=== PATIENT | male | born 1965 | race Caucasian/White ===

== ENCOUNTER → 2019-07-27 09:50 | Outpatient (BNVA) | payer SELFPAY | PROVIDERS: Family Provider Nurse Practitioner Family; Visit Provider Nurse Practitioner Family | DX: E11.9 Type 2 diabetes mellitus without complications (principal); F41.9 Anxiety disorder, unspecified | CPT/HCPCS: 80053; 82043; 82044; 83036 ==

== ENCOUNTER → 2020-02-23 09:58 | Outpatient (BNVA) | payer SELFPAY | PROVIDERS: Family Provider Nurse Practitioner Family; Visit Provider Nurse Practitioner Family | DX: R35.0 Frequency of micturition (principal); E11.9 Type 2 diabetes mellitus without complications; Z79.899 Other long term (current) drug therapy; Z12.5 Encounter for screening for malignant neoplasm of prostate; R32 Unspecified urinary incontinence | CPT/HCPCS: 36416; 80053; 81000; 82962; 83036; G0103 ==

== ENCOUNTER → 2020-03-04 16:37 | Outpatient (BNVA) | payer SELFPAY | PROVIDERS: Family Provider Nurse Practitioner Family; Visit Provider Nurse Practitioner Family | DX: E13.65 Other specified diabetes mellitus with hyperglycemia (principal) | CPT/HCPCS: 36416; 82962 ==

== ENCOUNTER → 2020-12-23 08:47 | Outpatient (BNVA) | payer SELFPAY | PROVIDERS: Family Provider Nurse Practitioner Family; Visit Provider Nurse Practitioner Family | DX: E78.5 Hyperlipidemia, unspecified (principal); E11.9 Type 2 diabetes mellitus without complications; I10 Essential (primary) hypertension | CPT/HCPCS: 80053; 80061; 82043; 83036 ==

== ENCOUNTER → 2021-04-25 11:12 | Outpatient (BNVA) | payer SELFPAY | PROVIDERS: Family Provider Nurse Practitioner Family; Visit Provider Nurse Practitioner Family | DX: E11.9 Type 2 diabetes mellitus without complications (principal); E78.5 Hyperlipidemia, unspecified | CPT/HCPCS: 80061; 83036 ==

== ENCOUNTER → 2021-10-09 10:05 | Outpatient (BNVA) | payer SELFPAY | PROVIDERS: Visit Provider Nurse Practitioner Family | DX: E11.9 Type 2 diabetes mellitus without complications (principal); I10 Essential (primary) hypertension | CPT/HCPCS: 82043; 83036 ==

== ENCOUNTER → 2022-08-11 11:39 | Outpatient (BNVA) | payer SELFPAY | PROVIDERS: PCP Nurse Practitioner Family; Visit Provider Nurse Practitioner Family | DX: E11.9 Type 2 diabetes mellitus without complications (principal); I10 Essential (primary) hypertension; L03.90 Cellulitis, unspecified | CPT/HCPCS: 80061 ==

== ENCOUNTER → 2022-10-12 16:35 | Outpatient (BNVA) | payer SELFPAY | PROVIDERS: PCP Nurse Practitioner Family; Visit Provider Nurse Practitioner Family | DX: I10 Essential (primary) hypertension (principal); E11.9 Type 2 diabetes mellitus without complications | CPT/HCPCS: 80061; 83036 ==

== ENCOUNTER → 2022-10-16 15:38 | Outpatient (BNVA) | payer SELFPAY | PROVIDERS: PCP Nurse Practitioner Family; Visit Provider Nurse Practitioner Family | DX: E11.9 Type 2 diabetes mellitus without complications (principal) | CPT/HCPCS: 82962 ==

== ENCOUNTER → 2023-03-17 16:07 | Outpatient (BNVA) | payer SELFPAY | PROVIDERS: PCP Nurse Practitioner Family; Visit Provider Nurse Practitioner Family | DX: E11.9 Type 2 diabetes mellitus without complications (principal) | CPT/HCPCS: 80053; 80061; 83036; 85025 ==

== ENCOUNTER 2023-08-11 07:58 | Emergency (ER) | payer SELFPAY ==
[2023-08-11 08:44] LABS: Basophils # 0.1 10^3/uL (0.0-0.1); Basophils % 0.7 %; Eosinophils # 0.2 10^3/uL (0.0-0.8); Eosinophils % 3.1 %; Hematocrit 43.4 % (37-53); Lymphocytes # 1.3 10^3/uL (0.8-4.8); Lymphocytes % 18.8 %; Mean Corpuscular HGB Conc 33.6 g/dL (30-55); Mean Corpuscular Hemoglobin 30.7 pg (27-33); Mean Corpuscular Volume 91.4 fl (82-101); Mean Platelet Volume 9.7 fL (7.4-10.4); Monocytes # 0.5 10^3/uL (0.2-0.9); Monocytes % 6.8 %; Neutrophils # 4.97 10^3/uL (1.8-7.7); Neutrophils % 70.2 %; Nucleated Red Blood Cells % 0 %; Platelet Count 281 10^3/cmm (157-399); Red Blood Count 4.75 10^6/uL (3.85-5.65); Red Cell Distribution Width 12.2 % (12.1-15.1); White Blood Count 7.08 10^3/uL (3.29-11.43)
[2023-08-11 08:45] VITALS: BP 152/87; PULSE 110; RESP 18; TEMP 36.8; O2SAT 97
[2023-08-11 09:03] LABS: Alanine Aminotransferase 16 U/L (0-41); Albumin Level 4.3 g/dL (3.5-5.2); Alkaline Phosphatase 96 U/L (40-130); Anion Gap 16.2 (5-19); Aspartate Amino Transferase 12 U/L (0-40); Blood Urea Nitrogen 15 mg/dL (6-20); Calcium 8.5 mg/dL (8.5-10.5); Carbon Dioxide 26 mmol/L (22-29); Chloride 100 mmol/L (98-107); Globulin 2.9 g/dL (1.3-4.6); Glomerular Filtration Rate 86.4 mL/min (90-130); Osmolality Calculated 314 mOsm/kg (285-295); Potassium 4.2 mmol/L (3.5-5.1); Sodium 138 mmol/L (136-145); Total Bilirubin 0.4 mg/dL (0.15-1.2); Total Protein 7.2 g/dL (6.6-8.7)
--- NOTE | 2023-08-11 09:05 | XR_ITS ---
WS: [id number] Exam: XR foot RT min 3V* [id number] Date/Time of Exam: 08/11/2023 9:08 AM Reason For Exam: diabetic No acute fracture or dislocation. Minimal DJD at the first MP joint. The remaining joints are preserv ed. No soft tissue foreign bodies noted. Small posterior heel spur. XR/XR foot RT min 3V* [id number] IMPRESSION: 1. Minimal DJD at the first MP joint otherwise unremarkable RIGHT foot.
--- NOTE | 2023-08-11 09:05 | XR_ITS ---
WS: [id number] Exam: XR foot LT min 3V* [id number] Date/Time of Exam: 08/11/2023 9:07 AM Reason For Exam: diabetic No acute fracture or dislocation. The joints are relatively well-maintained. Small heel spurs. No sof t tissue foreign bodies. XR/XR foot LT min 3V* [id number] IMPRESSION: 1. No fracture or other significant finding.
[2023-08-11 09:29] LABS: Glucose 581 mg/dL (65-115)
--- NOTE | 2023-08-11 09:34 | ED_ITS ---
HPI - Extremity Problem 2 General: Chief complaint: Extremity Problem,Nontraumatic Stated complaint: blister on feet, pt states he is diabetic Time Seen by Provider: 08/11/23 08:06 Source: patient Mode of arrival: ambulatory History of Present Illness: 58-year-old male presents to the emergen cy room with blisters bilaterally on his feet. He was in [place] recently and had been playing a game on concrete and developed blisters. This was about a week ago there is no sign of infection. He states all of his belongings were impounded with his car so he does not have any of his medications. Patient is an insulin-dependent diabetic and he also takes metformin. He denies any chest pain no fever sweats or chills. Associated symptoms: Deny chest pain, fever(s) or rash Review of Systems 2 Const: Denies: fever(s) or chills Card: Denies: chest pain Resp: Denies: dyspnea GI: Denies: abdominal pain : Denies: dysuria, urinary frequency or urinary urgency Musc: Denies: neck pain or back pain Skin/Breast: Denies: rash PFSH ED 2 PFSH: Medical History Diabetes Social History Smoking and tobacco/nicotine status: never used tobacco/nicotine Alcohol intake: never Substance/Drug Use: never Adopted: No Caregiver/support person: No Lives independently: No Household members: spouse Current occupational status: employed Sexually active: Yes Do you think of yourself as: Straight/Heterosexual Current gender identity: Male Physical Exam 2 Const: COMMON NORMALS: no acute distress GENERAL APPEARANCE: cooperative and comfortable ORIENTATION/CONSCIOUSNESS: Yes awake, Yes oriented to person, Yes oriented to place and Yes oriented to time HENMT: COMMON NORMALS: normocephalic, atraumatic and hearing grossly normal bilaterally HEAD & SCALP: normocephalic and atraumatic Resp: COMMON NORMALS: normal respiratory effort, No retractions, No use of accessory muscles and clear to auscultation bilaterally AUSCULTATION: clear to auscultation bilaterally Cardio: COMMON NORMALS: regular rate, regular rhythm and No murmurs present (Cardio) RATE: regular rate RHYTHM: regular rhythm GI: COMMON NORMALS: Soft to palpation and No hepatosplenomegaly present A USCULTATION: Yes normoactive bowel sounds PALPATION: Yes Soft to palpation, No Tenderness to palpation present (GI), No Guarding due to palpation present (GI) and Yes No hepatosplenomegaly present Extremity: COMMON NORMALS: normal to inspection, capillary refill normal, no clubbing, cyanosis or edema, no calf tenderness and no pedal edema Neuro: SENSORIUM/ORIENTATION: Yes oriented to person, Yes oriented to place and Yes oriented to time Skin: COMMON NORMALS: no rashes or lesions noted GENERAL SKIN EXAM: no rashes or lesions noted Course 2 Vital Signs: Vital signs: Vital Signs Temperature 98.2 F 08/11/23 08:45 Pulse Rate 91 08/11/23 11:31 Respiratory Rate 18 08/11/23 08:45 Blood Pressure 128/84 08/11/23 11:31 Pulse Oximetry 95 08/11/23 11:31 Oxygen Delivery Me thod Room Air 08/11/23 08:45 MDM - Extremity (Nontraumatic) Medical Decision Making Healing blisters on the soles of the feet bilaterally infection or ulceration at this point. Will discharge home apply topical antibiotic ointment and keep covered change dressing daily will refer to podiatry to monitor his healing. Also set him up for primary care. We did refill his meds and states they were impounded with his car. His blood sugar is elevated but he does not have any ketones. Discharge the patient case management to make arrangements for PCP and podiatry. X-ray did not show any significant abnormality on his feet. Medical Records I reviewed the patient's medical records. Lab Data I reviewed the patient's lab results. 08/11/23 08:33 08/11/23 08:33 Radiology Impressions Foot X-Ray 08/11/23 09:05 IMPRESSION: 1. Minimal DJD at the first MP joint otherwise unremarkable RIGHT foot. Laboratory Results WBC 7.08 10^3/uL (3.29-11.43) 08/11/23 08:33 RBC 4.75 10^6/uL (3.85-5.65) 08/11/23 08:33 Hgb 14.60 g/dL (11.27-16.99) 08/11/23 08:33 Hct 43.4 % (37-53) 08/11/23 08:33 MCV 91.4 fl (82-101) 08/11/23 08:33 MCH 30.7 pg (27-33) 08/11/23 08:33 MCHC 33.6 g/dL (30-55) 08/11/23 08:33 RDW 12.2 % (12.1-15.1) 08/11/23 08:33 Plt Count 281 10^3/cmm (157-399) 08/11/23 08:33 MPV 9.7 fL (7.4-10.4) 08/11/23 08:33 Neut % (Auto) 70.2 % 08/11/23 08:33 Lymph % (Auto) 18.8 % 08/11/23 08:33 [place] % (Auto) 6.8 % 08/11/23 08:33 Eos % (Auto) 3.1 % 08/11/23 08:33 Baso % (Auto) 0.7 % 08/11/23 08:33 Neut # (Auto) 4.97 10^3/uL (1.8-7.7) 08/11/23 08:33 Lymph # (Auto) 1.3 10^3/uL (0.8-4.8) 08/11/23 08:33 [place] # (Auto) 0.5 10^3/uL (0.2-0.9) 08/11/23 08:33 Eos # (Auto) 0.2 10^3/uL (0.0-0.8) 08/11/23 08:33 Baso # (Auto) 0.1 10^3/uL (0.0-0.1) 08/11/23 08:33 Nucleated RBC % (auto) 0 % 08/11/23 08:33 Nucleated RBCs # 0.0 /100WBC 08/11/23 08:33 Sodium 138 mmol/L (136-145) 08/11/23 08:33 Potassium 4.2 mmol/L (3.5-5.1) 08/11/23 08:33 Chloride 100 mmol/L (98-107) 08/11/23 08:33 Carbon Dioxide 26 mmol/L (22-29) 08/11/23 08:33 Anion Gap 16.2 (5-19) 08/11/23 08:33 BUN 15 mg/dL (6-20) 08/11/23 08:33 Creatinine 0.9 mg/dL (0.7-1.2) 08/11/23 08:33 GFR Calculation 86.4 mL/min (90-130) L 08/11/23 08:33 Glucose 581 mg/dL (65-115) H* 08/11/23 08:33 POC Glucose 515 mg/dL (70-110) H* 08/11/23 09:56 Calculated Osmolality 314 mOsm/kg (285-295) H 08/11/23 08:33 Calcium 8.5 mg/dL (8.5-10.5) 08/11/23 08:33 Total Bilirubin 0.4 mg/dL (0.15-1.2) 08/11/23 08:33 AST 12 U/L (0-40) 08/11/23 08:33 ALT 16 U/L (0-41) 08/11/23 08:33 Alkaline Phosphatase 96 U/L (40-130) 08/11/23 08:33 Total Protein 7.2 g/dL (6.6-8.7) 08/11/23 08:33 Albumin 4.3 g/dL (3.5-5.2) 08/11/23 08:33 Globulin 2.9 g/dL (1.3-4.6) 08/11/23 08:33 Serum Ketones Negative (Negative) 08/11/23 08:33 All radiology interpretation(s) finalized by discharge Discharge Plan Discharge Patient Disposition: Home Clinical Impression: Uncontrolled diabetes mellitus, Diabetes mellitus, Blister of foot without infection Hypertension Qualifiers: Hypertension type: unspecified Qualified Code(s): I10 - Essential (primary) hypertension Condition: Stable Prescriptions: New amlodipine 5 mg tablet 5 mg PO DAILY Qty: 30 0RF fluoxetine 20 mg capsule 20 mg PO DAILY Qty: 30 0RF insulin glargine 100 unit/mL (3 mL) insulin pen 10 unit SUBCUT BID Qty: 15 0RF quetiapine 50 mg tablet 50 mg PO DAILY Qty: 30 0RF Discontinued Lantus Solostar U-100 Insulin 100 unit/mL (3 mL) insulin pen See Rx Instructions .ROUTE .COMPLEX Qty: 15 0RF Dose Instruction: ADMINISTER 30 UNITS UNDER THE SKIN TWICE DAILY Rx Instructions: ADMINISTER 30 UNITS UNDER THE SKIN TWICE DAILY 340b fluoxetine 40 mg capsule See Rx Instructions .ROUTE .COMPLEX Rx Instructions: TAKE 1 CAPSULE BY MOUTH IN THE MORNING AND AT NOON. simvastatin 10 mg tablet 10 mg PO DAILY amlodipine 5 mg tablet 5 mg PO DAILY quetiapine 50 mg tablet 50 mg PO BEDTIME No Action (DME) blood-glucose meter,continuous Misc See Rx Instructions .Route Qty: 1 0RF Rx Instructions: As directed Nizoral A-D 1 % shampoo 1 applic topical Q3D PRN (Reason: SCALP IRRITATION) Discharge Orders: Discharge ED (Routine); Ordered 08/11/23 Ordered By: Eamon Zhang Referrals: Micki Max FNP [Primary Care Provider] - Discharge Diet: As Directed Discharge Activity: Increase activity as tolerated Patient Instructions: Opioid Safety, Pain Management Activity Restrictions/Additional Instructions: You are seen in the emergency room for sores on your feet. Your glucose was significantly elevated you are given prescriptions for your medications for 30 days case management make arrangements for you to follow-up with podiatry for the blisters on your feet there is no sign of infection at this time if you develop signs of infection redness drainage or fever you should return to be reevaluated. I will also make arrangements for you to establish with a primary care physician. 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
--- NOTE | 2023-08-11 09:54 | PC.PHAR ---
Addendum entered by Jacquelin Willoughby 08/11/23 09:55: PT STAYING AT A LONG-TERM CURRENTLY Original Note: PT UNABLE TO GET TO HIS MEDICATIONS FROM HOME AND STATES HAS NOT TAKEN ANY MEDS IN AWHILE.
[2023-08-11 09:55] LABS: Ketone (Acetest) Serum Negative (Negative)
[2023-08-11] MEDS: insulin regular-human 100 units/1 mL 15 UNIT IVP (09:58)
[2023-08-11 10:34] LABS: Glucose Point of Care 515 mg/dL (70-110)
[2023-08-11 11:31] VITALS: BP 128/84; PULSE 91; O2SAT 95
--- NOTE | 2023-08-12 07:37 | DCPLANNER ---
messaged podiatry and fam med for er f/u
== END 2023-08-11 11:32 | disposition home or self-care (01) ==
PROVIDERS: Emergency Provider Family Medicine; PCP Nurse Practitioner Family
DX: S90.822A Blister (nonthermal), left foot, initial encounter (principal); S90.821A Blister (nonthermal), right foot, initial encounter; X58.XXXA Exposure to other specified factors, initial encounter; Y92.149 Unspecified place in prison as the place of occurrence of the external cause; E11.65 Type 2 diabetes mellitus with hyperglycemia; I10 Essential (primary) hypertension; Z79.4 Long term (current) use of insulin
CPT/HCPCS: 36415; 36416; 73630; 80053; 82009; 82962; 85025; 96374; 99284; J1815

== ENCOUNTER → 2023-10-25 10:26 | Outpatient (BNVA) | payer MEDICAID, SELFPAY | PROVIDERS: PCP Nurse Practitioner Family; Visit Provider Nurse Practitioner Family | DX: I10 Essential (primary) hypertension (principal); E11.9 Type 2 diabetes mellitus without complications | CPT/HCPCS: 80053; 80061; 83036 ==

== ENCOUNTER 2023-11-18 14:03 | Outpatient (CLI) | payer MEDICAID, SELFPAY ==
--- NOTE | 2023-11-18 14:00 | US_ITS ---
WS: [id number] ULTRASOUND SOFT TISSUES LEFT chest. HISTORY: R22.32 - Localized swelling, mass and lump, left upper limb COMPARISON: None available. TECHNIQUE: 2-D and color Doppler imaging is submitted. Ultrasound is directed over the LEFT chest at the area of concern. There is a nearly isoechoic mass c orresponding to the palpable abnormality. Mass is slightly hypoechoic with hyperechoic linear strands . There is no increased vascularity. This area measures approximately 8.3 x 6.6 x 3.3 cm and is most likely a lipoma. US/US soft tissue head neck [id number] IMPRESSION: Nonvascular mass corresponds to the palpable region of interest along the LEFT chest. This is most likely a large lipoma.
== END 2023-11-18 14:04 | disposition home or self-care (01) ==
LOC: RAD 14:05
PROVIDERS: PCP Nurse Practitioner Family; Visit Provider Nurse Practitioner Family
DX: R22.2 Localized swelling, mass and lump, trunk (principal)
CPT/HCPCS: 76536

== ENCOUNTER → 2024-06-07 16:06 | Outpatient (BNVA) | payer MEDICAID, SELFPAY | PROVIDERS: PCP Nurse Practitioner Family; Visit Provider Nurse Practitioner Family | DX: E11.9 Type 2 diabetes mellitus without complications (principal); I10 Essential (primary) hypertension | CPT/HCPCS: 80053; 80061; 83036 ==

== ENCOUNTER 2024-06-27 15:10 | Outpatient (CLI) | payer MEDICAID, SELFPAY ==
--- NOTE | 2024-06-27 15:15 | MR_ITS ---
WS: [id number] MRI LUMBAR SPINE NONCONTRAST TECHNIQUE: Sagittal T1, T2 and STIR imaging. Axial T1 and T2 imaging. CLINICAL INFORMATION: M54.9 - Dorsalgia, unspecified COMPARISON: None. FINDINGS: Mild lumbar curve. No acute compression. Disc bulging worse at L3-L5. L1-L2: Mild annular bulging. Mild facet arthropathy. Slight narrowing RIGHT subarticular recess. Foramen are patent. L2-L3: Slight retrolisthesis. Shallow central protrusion with a small annular tear. Mild to moderate central canal stenosis. Moderate facet arthropathy. Significant impingement in the subarticular recess bilaterally. Mild RIGHT greater than LEFT foraminal narrowing with a RIGHT foraminal protrusion. L3-L4: Moderate central canal stenosis with severe impingement on the traversing LEFT L4 nerve root in the subarticular recess. Moderate facet arthropathy. LEFT foraminal protrusion slightly impinges the exiting LEFT L3 nerve root. Moderate LEFT foraminal narrowing. L4-L5: Slight retrolisthesis. Mild disc bulging with severe central canal stenosis. Moderate to advanced facet arthropathy. Severe impingement on the RIGHT subarticular recess and traversing RIGHT L5 nerve root. Slight retrolisthesis L4 on L5. Moderate to severe bilateral foraminal narrowing L5-S1: Mild disc bulging. Impingement RIGHT subarticular recess and traversing RIGHT S1 nerve root. Severe RIGHT foraminal narrowing. Moderate to advanced facet arthropathy. Visualized pelvic bony structures: Normal. Paravertebral soft tissues: Normal. MR/MR lumbar spine wo con* [id number] IMPRESSION: 1. Moderate central canal stenosis L3-4 impinges the LEFT subarticular recess and traversing LEFT L4 nerve root. 2. Severe central canal stenosis L4-5 due to disc bulging in combination with facet arthropathy and ligamentum flavum hypertrophy. Severe impingement on the RIGHT greater than LEFT subarticular recess. 3. Disc bulging L5-S1 slightly impinges the traversing RIGHT S1 nerve root wit h severe RIGHT foraminal narrowing. 4. Central disc protrusion L2-3 with mild to moderate central canal stenosis a nd a small annular fissure. 5. Moderate to severe bilateral L4-5 foraminal narrowing.
== END 2024-06-27 15:11 | disposition home or self-care (01) ==
PROVIDERS: PCP Nurse Practitioner Family; Visit Provider Nurse Practitioner Family
DX: M48.061 Spinal stenosis, lumbar region without neurogenic claudication (principal); G89.29 Other chronic pain; M51.369 Other intervertebral disc degeneration, lumbar region without mention of lumbar back pain or lower extremity pain; M24.28 Disorder of ligament, vertebrae; M51.379 Other intervertebral disc degeneration, lumbosacral region without mention of lumbar back pain or lower extremity pain; M48.07 Spinal stenosis, lumbosacral region; M51.26 Other intervertebral disc displacement, lumbar region; M43.8X6 Other specified deforming dorsopathies, lumbar region; M47.896 Other spondylosis, lumbar region; M47.897 Other spondylosis, lumbosacral region
CPT/HCPCS: 72148

== ENCOUNTER → 2024-07-27 14:41 | Outpatient (BNVA) | payer MEDICAID, SELFPAY | PROVIDERS: PCP Nurse Practitioner Family; Visit Provider Orthopaedic Surgery | DX: M54.9 Dorsalgia, unspecified (principal) | CPT/HCPCS: 72110 ==

== ENCOUNTER → 2024-11-06 15:20 | Outpatient (BNVA) | payer MEDICAID, SELFPAY | PROVIDERS: PCP Nurse Practitioner Family; Visit Provider Nurse Practitioner Family | DX: I10 Essential (primary) hypertension (principal); E11.9 Type 2 diabetes mellitus without complications | CPT/HCPCS: 80053; 80061; 83036 ==

== ENCOUNTER → 2024-11-21 08:24 | Outpatient (BNVA) | payer MEDICAID, SELFPAY | PROVIDERS: PCP Nurse Practitioner Family; Visit Provider Anesthesiology Pain Medicine | DX: M25.511 Pain in right shoulder (principal); M25.512 Pain in left shoulder | CPT/HCPCS: 73030 ==

== ENCOUNTER → 2024-11-22 13:50 | Outpatient (BNVA) | payer MEDICAID, SELFPAY | PROVIDERS: PCP Nurse Practitioner Family; Visit Provider Nurse Practitioner Family | DX: E11.9 Type 2 diabetes mellitus without complications (principal) | CPT/HCPCS: 82962 ==

== ENCOUNTER → 2024-12-07 17:02 | Outpatient (BNVA) | payer MEDICAID, SELFPAY | PROVIDERS: PCP Nurse Practitioner Family; Visit Provider Orthopaedic Surgery | DX: M48.062 Spinal stenosis, lumbar region with neurogenic claudication (principal) | CPT/HCPCS: 36415; 80053; 81001; 85025 ==

== ENCOUNTER 2024-12-19 10:55 | Outpatient (CLI) | payer MEDICAID, SELFPAY ==
[2024-12-19 12:31] LABS: Estmated Average Glucose 226; Hemoglobin A1C 9.5 % (4.0-6.0)
== END 2024-12-19 10:56 | disposition home or self-care (01) ==
LOC: LAB 10:59
PROVIDERS: PCP Nurse Practitioner Family; Visit Provider Orthopaedic Surgery
DX: Z01.818 Encounter for other preprocedural examination (principal)
CPT/HCPCS: 36415; 83036

== ENCOUNTER 2025-01-30 13:20 | Outpatient (CLI) | payer MEDICAID, SELFPAY ==
[2025-01-30 15:04] LABS: Estmated Average Glucose 177; Hemoglobin A1C 7.8 % (4.0-6.0)
== END 2025-01-30 13:21 | disposition home or self-care (01) ==
LOC: LAB 13:22
PROVIDERS: PCP Nurse Practitioner Family; Visit Provider Orthopaedic Surgery
DX: Z01.818 Encounter for other preprocedural examination (principal)
CPT/HCPCS: 36415; 83036

== ENCOUNTER 2025-03-02 06:23 | Day surgery (SDC) | payer MEDICAID, SELFPAY ==
[2025-03-02] VITALS (14 sets, daily range): BP systolic 128–158; BP diastolic 73–87; PULSE 81–97; RESP 12–18; TEMP 36.4–36.6; O2SAT 90–99; BMI 30.2
--- NOTE | 2025-03-02 07:32 | ANES.PREANE2 ---
Pre-Anesthetic Assessment Height/Weight: Height 1.8 m Weight 98.43 kg Temp Pulse Resp BP Pulse Ox O2 Del Method 97.9 F 82 17 149/86 98 Room Air 03/02/25 06:35 03/02/25 06:35 03/02/25 06:35 03/02/25 06:40 03/02/25 06:35 03/02/25 06:35 Preop Diagnosis: Lumbar stenosis neurogenic claudication Operation Date: 03/02/25 08:20 Proposed Procedures p Spine Decompression Lumbar Decompression(Not Applicable) - Milad Ordoñez, DO Familial anesthetic complications: None Was Beta Minal taken within 24 hours: N/A Was Clonidine taken within 24 hours: N/A Last intake: Intake Last Liquid Date 03/01/25 Last Liquid Time 17:00 Last Solid Date 03/01/25 Last Solid Time 17:00 Social No alcohol and No tobacco Exam alert, oriented x 3, clear to auscultation bilaterally and regular rate & rhythm Airway Submandibular: within normal limits Cervical ROM: within normal limits Mallampati: Class III (Prior jaw surgery, decreased incisor distance ) Dentition: full Pulmonary None reported CV/HEM Hypertension None reported Hepatic None reported GI None reported Metabolic Diabetes Mellitus Preop BG 111, A1C 7.8 Musc/skel Lower Back Pain Neuropsych Anxiety Anesthetic Plan ASA status: 3 Anesthesia: General Risk of > 500 ml blood loss (7ml/kg in children): No Medications/Allergies Home Medications ?Medication ?Instructions ?Recorded ?Confirmed ?Last Taken ?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,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,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 08/20/23 02/26/25 Unknown Rx lancets 21 gauge (Color Lancets) #100 ea 12/13/24 02/26/25 Unknown Rx trazodone 100 mg tablet 100 mg PO DAILY #30 tabs 01/09/25 03/02/25 02/14/25 Rx fluoxetine 60 mg tablet 60 mg PO BID #60 tabs 02/06/25 03/02/25 03/01/25 Rx celecoxib 200 mg capsule 200 mg PO BID #60 caps 02/09/25 03/02/25 03/01/25 Rx insulin glargine 100 unit/mL (3 See Rx Instructions SUBCUT BID #15 02/09/25 03/02/25 03/01/25 Rx mL) subcutaneous pen mL blood sugar diagnostic (Advanced #200 ea 02/14/25 02/26/25 Unknown Rx Glucose Meter Test Strips) pen needle, diabetic 30 gauge x #1,200 ea 02/15/25 02/26/25 Unknown Rx 5/16 (Pen Needle) diphenhydramine HCl 25 mg tablet 25 mg PO TID PRN allergies 02/28/25 03/02/25 03/01/25 History (Benadryl Allergy) divalproex 500 mg tablet,delayed 500 mg PO BID 02/28/25 03/02/25 03/01/25 History release (Depakote) Allergies Allergy/AdvReac Type Severity Reaction Status Date / Time Penicillins Allergy unknown Verified 03/02/25 06:32 Current Medications Generic Name Dose Route Start Last Admin Trade Name Freq PRN Reason Stop Dose Admin Sodium Chloride 1,000 mls @ 30 mls/hr 03/02/25 06:30 03/02/25 06:45 Sodium Chloride 0.9% IV 03/03/25 06:29 30 mls/hr .Q24H SUZY Administration PFSH Anesthesia Medical History Lipoma of axilla Uncontrolled diabetes mellitus Diabetes Social History Smoking and tobacco/nicotine status: never used tobacco/nicotine Alcohol intake: never Substance/Drug Use: never Adopted: No Caregiver/support person: No Lives independently: No Household members: spouse Current occupational status: employed Sexually active: Yes Do you think of yourself as: Straight/Heterosexual Current gender identity: Male
--- NOTE | 2025-03-02 08:21 | W.PM.OPSFHP ---
Same Day Surgery H&P Indication for Procedure/HPI DATE OF PROCEDURE: March 02, 2025 CHIEF COMPLAINT/INDICATIONFOR SURGICAL PROCEDURE: Back pain leg pain PREOP DIAGNOSIS: Lumbar stenosis neurogenic claudication PLANNED PROCEDURE: Operation Date: 03/02/25 08:20 Proposed Procedures p Spine Decompression Lumbar Decompression(Not Applicable) - Milad Ordoñez, DO Medications/Allergies* Home Medications ?Medication ?Instructions ?Recorded ?Confirmed ?Type diphenhydramine HCl 25 mg tablet 25 mg PO TID PRN allergies 02/28/25 03/02/25 History (Benadryl Allergy) divalproex 500 mg tablet,delayed 500 mg PO BID 02/28/25 03/02/25 History release (Depakote) Allergies/Adverse Reactions Allergy/AdvReac Type Severity Reaction Status Date / Time Penicillins Allergy unknown Verified 03/02/25 06:32 Current Medications: Generic Name Dose Route Start Last Admin Trade Name Freq PRN Reason Stop Dose Admin Sodium Chloride 1,000 mls @ 30 mls/hr 03/02/25 06:30 03/02/25 06:45 Sodium Chloride 0.9% IV 03/03/25 06:29 30 mls/hr .Q24H SUZY Administration Pertinent History/Comorbid Conditions* Medical History (Updated 01/24/25 @ 15:19 by Dann Browne MD) Lipoma of axilla Uncontrolled diabetes mellitus Diabetes Social History Smoking and tobacco/nicotine status: never used tobacco/nicotine Alcohol intake: never Substance/Drug Use: never Adopted: No Caregiver/support person: No Lives independently: No Household members: spouse Current occupational status: employed Sexually active: Yes Do you think of yourself as: Straight/Heterosexual Current gender identity: Male Pertinent Exam Findings alert, oriented x 3 and procedure specific exam findings Recommendations Risks and benefits of procedure reviewed Surgery/Procedure today Coding Level of Care Code Acute Code for Chg Fwd
--- NOTE | 2025-03-02 09:08 | XR_ITS ---
WS: [id number] Lumbar spine, C-arm fluoroscopy views, 03/02/2025 Clinical Data: OR PICS Comparison: Lumbar spine, 07/17/2024 Findings: Dr. Ordoñez performed a lumbar decompression. XR/XR lumbar spine 2-3V* [id number] Impression: Lumbar decompression.
--- NOTE | 2025-03-02 09:24 | PM.OP ---
Operative Report Date of procedure: March 02, 2025 Pre-op diagnosis: Lumbar stenosis neurogenic claudication Post-op diagnosis: same Procedure done: L4/5 laminectomy partial facetectomy Surgeon: Milad Ordoñez DO Estimated blood loss (mL): 5 Procedure: L4/5 laminectomy partial facetectomy Patient is brought to the operative suite. After undergoing anesthesia they are placed in the prone position. All areas of impingement are well padded. Patient is then prepped and draped in the normal sterile fashion. A skin incision is made over the L4/5 level. This is confirmed under c-arm guidance. A series of dilators are passed and the tubular retractor is docked on the L4 lamina. A bovie is used to clear the soft tissue off the lamina and the L4/5 facet joint. A high speed ir[place]a is then used to perform the laminectomy and take down the medial aspect of the L 4/5 facet joint. A kerrison rongeure was then used to take down the remaining lamina and smooth the edge of the laminectomy up to the point where the ligamentum flavum attaches. Attention was then brought to the medial aspect of the facet joint. The remaining medial aspect of the superior and inferior aspect of the facet joint were taken down with the kerrison from the pedicle of L4 to L 5. The facet joint had significant hypertrophy. Attention was then brought to the Ligamentum Flavum. The ligament was taken down from the lamina of L4 to L5 and out medially to the remaining facet joint. The ligament was thick. The dura was then exposed. The dura was in good repair. The L4 nerve was then traced with a curette out the L4/5 foramen and found to be adequately decompressed. The L5 nerve was traced with a curette around the L5 pedicle. The lateral recess was opened with a kerrison helping to further decompress the L5 nerve. Wound is then irrigated copiously with saline and surgiflo is used to stop any bleeding. The tubular retractor is removed and the wound is closed with vicryl and monocryl suture. Steri strips were applied. A sterile dressing is then placed. Patient was then placed in the supine position and transferred to the PACU in stable condition.
[2025-03-02] MEDS: lidocaine-epi 1% 20 mL INJ 10 ML INJECTION (09:38)
[2025-03-02] MEDS: HYDROcodone-acetaminophen 5-325 mg Tablet 1 TAB PO (10:55)
--- NOTE | 2025-03-02 11:45 | ANE.PACU2 ---
Inpatient post-anesthesia follow up: Airway intact: Yes Vital signs: Temperature 97.7 F Pulse Rate 96 Respiratory Rate 16 Blood Pressure 155/85 Pulse Oximetry 95 Oxygen Delivery Me thod Room Air Oxygen Flow Rate 2 Fraction of Inspir ed Oxygen Hydration adequate: Yes Nausea and vomiting: No Pain level: 1 Mental status: Baseline
== END 2025-03-02 11:05 | disposition home or self-care (01) ==
PROVIDERS: PCP Nurse Practitioner Family; Visit Provider Orthopaedic Surgery
PROC: (CPT 63047; principal; 2025-03-02 08:20)
DX: M48.062 Spinal stenosis, lumbar region with neurogenic claudication (principal); E11.9 Type 2 diabetes mellitus without complications; F41.9 Anxiety disorder, unspecified; Z79.4 Long term (current) use of insulin
CPT/HCPCS: 63047; 36416; 72100; 76000; 82962; A4649; J1100; J1171; J1885; J2250; J2405; J2704; J3010; J3490; J7030; J9999

== ENCOUNTER 2025-03-04 22:37 | Emergency (ER) | payer MEDICAID, SELFPAY ==
--- OUTSIDE RECORDS SUMMARY | 2010-11-12 18:00 | XMS_ITS | Continuity of Care Document ---
Author Organization [facility] Address [address] [place] [address] Phone Care Team Providers Care Multimedia Educational Specialist Name Role Phone Won Zavala M.D. Unavailable Unavailable Advance Directives Directive Yes / No Effective Date File Name No Information Encounters Encounter Description Practice Location Reason(s) For Visit Diagnoses Date Provider Providers Copied on Encounter [facility], [address] [place], [place], [id number], [place] tel:[phone] [facility] No Information Lucas Upton. [address] [place] [address] Curly [facility], [place], [id number], [place]. Family History Family Member Type Diagnosis Age At Onset No Information Payers Payer name Insurance type Covered republican ID Authoriza tion(s) No Information Social History [...]
[2025-03-04 22:10] VITALS: BMI 29.8
[2025-03-04 22:13] VITALS: BP 175/84; PULSE 91; RESP 22; TEMP 37.2; O2SAT 95
--- OUTSIDE RECORDS SUMMARY | 2025-03-04 22:39 | XMS_ITS | Clinical Summary ---
Author Organization [facility] Address [address] [place] [address] Phone Care Team Providers Care Information Services Vice President Name Role Phone Unavailable Primary Care Provider Unavailabl e Allergies Active Allergy Reactions Criticality Noted Date Comments Penicillin Anaphylaxis High 05/26/2024 Medications No known medications Active Problems Problem Noted Date Diagnosed Date Musculoskeletal back pain 05/26/2024 Encounters Date Type Department Care Team Description 02/27/2025 External Device Data [facility] ABSTRACTION Provider, Abstract 02/06/2025 External Device Data [facility] Provider, Abstract 02/06/2025 External Device Data [facility] Provider, Abstract 01/30/2025 External Device Data [facility] Provider, Abstract 01/17/2025 External Device Data [facility] Provider, Abstract 01/09/2025 External Device Data [facility] Provider, Abstract 12/26/2024 External Device Data [facility] Provider, Abstract from Last 3 Months Social History Tobacco Use Types Packs/Day Years Used Date Smoking Tobacco: Never Smokeless Tobacco: Never Tobacco Cessation:Counseling Given: Not Answered Alcohol Use Standard Drinks/Week Comments Never 0 (1 standard drink = 0.6 oz pur e alcohol) Feeling Safe Answer Date Recorded Are you in a relationship wi th someone who hurts you emotionally and/or physically? No 05/26/2024 Sex and Gender Information Value Date Recorded Sex Assigned at Not on file Legal Sex Male 11:20 AM CDT Gender Identity Not on file Sexual Orientation Not on file Last Filed Vital Signs Vital Sign Reading Time Taken Comments Blood Pressure 138/75 05/26/2024 12:30 PM CDT Pulse 91 05/26/2024 12:30 PM CDT Temperature 37.1 C (98.7 F) 05/26/2024 11:25 AM CDT Respiratory Rate 18 05/26/2024 12:30 PM CDT Oxygen Saturation 96% 05/26/2024 12:30 PM CDT Inhaled Oxygen Concentration - - Weight 97.2 kg (214 lb 3.2 oz) 05/26/2024 11:25 AM CDT Height 180.3 cm (5' 11 ) 05/26/2024 11:25 AM CDT Body Mass Index 29.87 05/26/2024 11:25 AM CDT Plan of Treatment Health Maintenance Due Date Last Done Comments Pre-Diabetes and Diabetes Screening 1965 DTAP/TDAP/TD VACCINES (1 - Tdap) 02/23/1983 COLORECTAL SCREENING 02/23/2009 Colorectal Cancer Screening 02/23/2009 FIT-DNA Q 3 years 02/23/2009 FIT/FOBT Q 1 year 02/23/2009 Flex Sig/CT Colonography Q 5 years 02/23/2009 ZOSTER VACCINE (1 of 2) 02/23/2014 INFLUENZA VACCINE (#1) 2024 RSV VACCINE (60+ or ) (1 - 1-dose 75+ series) 02/23/2039 Insurance [facility] [id number] MEDICAID [place]
--- OUTSIDE RECORDS SUMMARY | 2025-03-04 22:39 | XMS_ITS | Encounter Summary ---
Author Organization [employer] Address [address] [place] [address] Care Team Providers Care Business Education Instructor Name Role Phone Unavailable Primary Care Provider Unavailabl e Encounter Details Date Type Department Care Team (Late st Contact Info) Description 02/27/2025 External Device Data [facility] Provider, Abstract NO ADDRESS ON FILE Social History Tobacco Use Types Packs/Day Years Used Date Smoking Tobacco: Never Smokeless Tobacco: Never Alcohol Use Standard Drinks/Week Comments Never 0 [...] on file Sexual Orientation Not on file documented as of this encounter Plan of Treatment Not on file documented as of this encounter Visit Diagnoses Not on filedocumented in this encounter
--- NOTE | 2025-03-04 22:52 | CTR_ITS ---
PROCEDURE INFORMATION: Exam: CT Abdomen And Pelvis Without Contrast Exam date and time: 03/04/2025 11:23 PM Age: 60 years old Clinical indication: Abdominal pain; Generalized; Prior surgery; Surgery date: Post-operative (0-2 days); Surgery type: L4-l5 laminectomy/facetectomy 03/02/2025; C/O mid to low back and abd pain with constipation since l4-l5 laminectomy/facetectomy on 03/02/2025. ; Additional info: Abd distension, worsening since surgery and constipated TECHNIQUE: Imaging protocol: Computed tomography of the abdomen and pelvis without contrast. Radiation optimization: All CT scans at this facility use at least one of these dose optimization techniques: automated exposure control; mA and/or kV adjustment per patient size (includes targeted exams where dose is matched to clinical indication); or iterative reconstruction. COMPARISON: CT abdomen pelvis w con* [id number] 10/05/2018 2:25 PM RADIATION DOSE METRICS: Total DLP (mGy-cm): 938.06 FINDINGS: Liver: Normal. No mass. Gallbladder and biliary ducts: Cholelithiasis. Pancreas: Normal. No ductal dilation. Spleen: Normal. No splenomegaly. Adrenal glands: Normal. No mass. Kidneys and ureters: No nephrolithiasis, hydronephrosis, or obstructive uropathy. Stomach and bowel: Unremarkable. No obstruction. No mucosal thickening. Appendix: No evidence of appendicitis. Intraperitoneal space: Unremarkable. No free air. No significant fluid collection. Vasculature: Unremarkable. No abdominal aortic aneurysm. Lymph nodes: Unremarkable. No enlarged lymph nodes. Urinary bladder: Unremarkable as visualized. Reproductive: Unremarkable as visualized. Bones/joints: Air in the spinal canal and posterior subcutaneous fat, from recent L4-L5 laminectomy/facetectomy. No acute lumbar spine compression fracture. The need for lumbar spine MRI should be determined clinically. Soft tissues: Unremarkable. CT/CT abdomen pelvis wo con [id number] IMPRESSION: 1. Cholelithiasis. 2. No nephrolithiasis, hydronephrosis, or obstructive uropathy. 3. Air in the spinal canal and posterior subcutaneous fat, from recent L4-L5 laminectomy/facetectomy. No acute lumbar spine compression fracture. The need for lumbar spine MRI should be determined clinically.
--- NOTE | 2025-03-04 22:52 | CTR_ITS ---
PROCEDURE INFORMATION: Exam: CT Thoracic Spine Without Contrast Exam date and time: 03/04/2025 11:20 PM Age: 60 years old Clinical indication: Pain in thoracic spine; C/O mid to low back and abd pain with constipation since l4-l5 laminectomy/facetectomy on 03/02/2025. ; Additional info: Fusion 2d ago, prog worsening lower midline pain TECHNIQUE: Imaging protocol: Computed tomography of the thoracic spine without contrast. Radiation optimization: All CT scans at this facility use at least one of these dose optimization techniques: automated exposure control; mA and/or kV adjustment per patient size (includes targeted exams where dose is matched to clinical indication); or iterative reconstruction. COMPARISON: MR lumbar spine wo con* [id number] 06/27/2024 3:34 PM RADIATION DOSE METRICS: Total DLP (mGy-cm): 1295.34 FINDINGS: Bones/joints: No acute thoracic spine fracture or subluxation. The vertebral body heights are maintained. No fracture of the posterior elements. No spondylolisthesis. Multilevel degenerative changes. Multilevel thoracic spondylosis, degenerative endplate changes/disc disease, and facet joint arthropathy. Soft tissues: Unremarkable. CT/CT thoracic spin wo con* [id number] IMPRESSION: 1. No acute thoracic spine fracture or subluxation. 2. Multilevel degenerative changes.
--- NOTE | 2025-03-04 22:52 | CTR_ITS ---
PROCEDURE INFORMATION: Exam: CT Lumbar Spine Without Contrast Exam date and time: 03/04/2025 11:23 PM Age: 60 years old Clinical indication: Low back pain; Prior surgery; Surgery date: Post-operative (0-2 days); Surgery type: L4-l5 laminectomy/facetectomy 03/02/2025; C/O mid to low back and abd pain with constipation since l4-l5 laminectomy/facetectomy on 03/02/2025. ; Additional info: Fusion 2d ago, prog worsening lower midline pain TECHNIQUE: Imaging protocol: Computed tomography of the lumbar spine without contrast. Radiation optimization: All CT scans at this facility use at least one of these dose optimization techniques: automated exposure control; mA and/or kV adjustment per patient size (includes targeted exams where dose is matched to clinical indication); or iterative reconstruction. COMPARISON: MR lumbar spine wo con* [id number] 06/27/2024 3:34 PM RADIATION DOSE METRICS: Total DLP (mGy-cm): 938.06 FINDINGS: Bones/joints: Recent L4-L5 laminectomy. Air is present at the surgical site, spinal canal and posterior subcutaneous fat. The need for MRI should be determined clinically. Mild dextroconvex scoliosis of the lumbar spine. No acute compression fracture. Severe bilateral foraminal stenosis at L4-L5. Severe bilateral foraminal stenosis at L5-S1. Soft tissues: See Bones/joints finding. Other findings: No organizing collection to indicate an abscess. CT/CT lumbar spine recon [id number] IMPRESSION: 1. Recent L4-L5 laminectomy. Air is present at the surgical site, spinal canal and posterior subcutaneous fat. The need for MRI should be determined clinically. 2. No acute compression fracture. 3. No organizing collection to indicate an abscess. 4. Severe bilateral foraminal stenosis at L4-L5. Severe bilateral foraminal stenosis at L5-S1.
[2025-03-04 23:06] LABS: Hematocrit 37.2 % (37-53); Hemoglobin 12.40 g/dL (11.27-16.99); Mean Corpuscular HGB Conc 33.3 g/dL (30-55); Mean Corpuscular Hemoglobin 30.6 pg (27-33); Mean Corpuscular Volume 91.9 fl (82-101); Nucleated Red Blood Cells % 0 %; Platelet Count 203 10^3/cmm (157-399); Red Blood Count 4.05 10^6/uL (3.85-5.65); White Blood Count 8.15 10^3/uL (3.29-11.43)
[2025-03-04] MEDS: HYDROmorphone 0.5 MG/0.5 ML INJ 1 MG IVP (23:07)
--- NOTE | 2025-03-04 23:30 | ED_ITS ---
HPI - Back Pain/Injury 2 General: Chief Complaint: Back Pain/Injury Stated Complaint: BACK PAIN History of Present Illness: Patient is a 60-year-old male with past medical history of seizures, diabetes who presents to the ED with back pain. Just had a lumbar fusion a few days ago here, seemingly had recovered well and went home shortly after. Over the last few days, he has had worsening diffuse lower back pain and that seems to shoot down both of his legs, he has had no urinary retention, saddle anesthesia, fecal incontinence, leg weakness. He denies any fevers, chills, diaphoresis. Related Data Home Medications ?Medication ?Instructions ?Recorded ?Confirmed diphenhydramine HCl 25 mg tablet 25 mg PO TID PRN pelon rgies 02/28/25 03/02/25 (Benadryl Allergy) divalproex 500 mg tablet,delayed 500 mg PO BID 5 03/02/25 release (Depakote) Previous Rx's ?Medication ?Instructions ?Recorded blood-glucose,customer experience manager,cont #1 ea 08/20/23 lancets 21 gauge (Color Lancets) #100 ea 12/13/24 trazodone 100 mg tablet 100 mg PO DAILY #30 tabs fluoxetine 60 mg tablet 60 mg PO BID #60 tabs celecoxib 200 mg capsule 200 mg PO BID #60 caps 02/09 Held on 03/02/25. Instructions: Resume on 03/04/25. insulin glargine 100 unit/mL (3 See Rx Instructions OLMSTEAD BCUT BID #15 02/09/25 mL) subcutaneous pen mL blood sugar diagnostic (Advanced #200 ea 02/14/25 Glucose Meter Test Strips) pen needle, diabetic 30 gauge x #1,200 ea 02/15/25/16 (Pen Needle) hydrocodone 5 mg-acetaminophen 325 1 tab PO Q4H PRN pa in 7 days #42 03/02/25 mg tablet tabs cyclobenzaprine 10 mg tablet 10 mg PO TID PRN muscle s pasm #20 03/05/25 tabs hydromorphone 2 mg tablet 2 mg PO Q6H PRN pain #6 tabs 03/05/25 (Dilaudid) Allergies Allergy/AdvReac Type Severity Reaction Status Date / Time Penicillins Allergy unknown Verified 03/02/25 06:32 Review of Systems 2 General: Reports: 10 or more systems reviewed and unremarkable except in HPI and below PFSH ED 2 PFSH: Medical History (Updated 03/05/25 @ 00:27 by Luis Brand DO) Lipoma of axilla Uncontrolled diabetes mellitus Diabetes Social History Smoking and tobacco/nicotine status: never used tobacco/nicotine Alcohol intake: never Substance/Drug Use: never Adopted: No Caregiver/support person: No Lives independently: No Household members: spouse Current occupational status: employed Sexually active: Yes Do you think of yourself as: Straight/Heterosexual Current gender identity: Male Physical Exam 2 Narrative: EXAM NARRATIVE: Well-appearing, vital stable on arrival, afebrile, well-appearing. Well-healing surgical incisions to back, mild diffuse tenderness, nothing midline, no step- offs or deformities, no significant swelling. 5 out of 5 motor and sensation of bilateral lower extremities, no saddle anesthesia, 2+ DP and PT pulse. Breathing comfortably on room air, saturating well, abdomen soft, nontender nondistended. Normal sinus rhythm with no murmurs, no leg swelling. GCS 15. Course 2 Vital Signs: Vital signs: Vital Signs Temperature 99 F 03/04/25 22:13 Pulse Rate 85 03/05/25 00:44 Respiratory Rate 17 03/05/25 00:03 Blood Pressure 156/79 03/05/25 00:44 Pulse Oximetry 97 03/05/25 00:44 Oxygen Delivery Me thod Room Air 03/04/25 22:13 MDM - Back Pain/Injury Medical Decision Making -ddx: Postoperative pain, hardware complication, abscess, vertebral fracture, sciatica, considered but less likely cord compression, epidural abscess/hematoma - Patient a few days out from his lumbar spinal fusion, seemingly with worsening pain at the site, bilateral neuropathic radicular pain from this, no red flag signs or symptoms of cord compression on exam or history, will evaluate with CTs to look at the postsurgical site, labs, provide pain control and reassess. - Patient with reassuring CT scan for no obvious hardware complication, infection formation, no SBO with his relative constipation, no other intra- abdominal pathology. His labs were relatively unremarkable for any systemic infection or inflammation, endorgan damage. With patient feeling almost completely better, having full motor and sensation of his lower extremities and improved pain in his back, and ability to ambulate, he was discharged in stable condition with a short-term prescription of oral Dilaudid and muscle relaxants and instructed follow-up with his original surgeon as able in the next few days, patient understanding, appreciative care and discharged in stable condition with strict return precautions given. Labs 03/04/25 22:59 03/04/25 22:59 Radiology Impressions Abdomen/Pelvis CT 03/04/25 22:52 IMPRESSION: 1. Cholelithiasis. 2. No nephrolithiasis, hydronephrosis, or obstructive uropathy. 3. Air in the spinal canal and posterior subcutaneous fat, from recent L4-L5 laminectomy/facetectomy. No acute lumbar spine compression fracture. The need for lumbar spine MRI should be determined clinically. Lumbar Spine CT 03/04/25 22:52 IMPRESSION: 1. Recent L4-L5 laminectomy. Air is present at the surgical site, spinal canal and posterior subcutaneous fat. The need for MRI should be determined clinically. 2. No acute compression fracture. 3. No organizing collection to indicate an abscess. 4. Severe bilateral foraminal stenosis at L4-L5. Severe bilateral foraminal stenosis at L5-S1. Thoracic Spine CT 03/04/25 22:52 IMPRESSION: 1. No acute thoracic spine fracture or subluxation. 2. Multilevel degenerative changes. Laboratory Results WBC 8.15 10^3/uL (3.29-11.43) 03/04/25 22:59 RBC 4.05 10^6/uL (3.85-5.65) 03/04/25 22:59 Hgb 12.40 g/dL (11.27-16.99) 03/04/25 22:59 Hct 37.2 % (37-53) 03/04/25 22:59 MCV 91.9 fl (82-101) 03/04/25 22:59 MCH 30.6 pg (27-33) 03/04/25 22:59 MCHC 33.3 g/dL (30-55) 03/04/25 22:59 RDW 12.8 % (12.1-15.1) 03/04/25 22:59 Plt Count 203 10^3/cmm (157-399) 03/04/25 22:59 MPV 9.2 fL (7.4-10.4) 03/04/25 22:59 Neut % (Auto) 76.5 % 03/04/25 22:59 Lymph % (Auto) 11.4 % 03/04/25 22:59 [place] % (Auto) 10.3 % 03/04/25 22:59 Eos % (Auto) 0.9 % 03/04/25 22:59 Baso % (Auto) 0.2 % 03/04/25 22:59 Neut # (Auto) 6.23 10^3/uL (1.8-7.7) 03/04/25 22:59 Lymph # (Auto) 0.9 10^3/uL (0.8-4.8) 03/04/25 22:59 [place] # (Auto) 0.8 10^3/uL (0.2-0.9) 03/04/25 22:59 Eos # (Auto) 0.1 10^3/uL (0.0-0.8) 03/04/25 22:59 Baso # (Auto) 0.0 10^3/uL (0.0-0.1) 03/04/25 22:59 Nucleated RBC % (auto) 0 % 03/04/25 22:59 Nucleated RBCs # 0.0 /100WBC 03/04/25 22:59 Sodium 135 mmol/L (136-145) L 03/04/25 22:59 Potassium 4.5 mmol/L (3.5-5.1) 03/04/25 22:59 Chloride 99 mmol/L (98-107) 03/04/25 22:59 Carbon Dioxide 28 mmol/L (22-29) 03/04/25 22:59 Anion Gap 12.5 (5-19) 03/04/25 22:59 BUN 15 mg/dL (8-23) 03/04/25 22:59 Creatinine 0.9 mg/dL (0.7-1.2) 03/04/25 22:59 GFR Calculation 85.8 mL/min (90-130) L 03/04/25 22:59 Glucose 281 mg/dL (65-115) H 03/04/25 22:59 Calculated Osmolality 291 mOsm/kg (285-295) 03/04/25 22:59 Calcium 9.0 mg/dL (8.5-10.5) 03/04/25 22:59 Phosphorus 2.9 mg/dL (2.5-4.5) 03/04/25 22:59 Magnesium 1.9 mg/dL (1.7-2.3) 03/04/25 22:59 Creatine Kinase 184 U/L (39-308) 03/04/25 22:59 C-React Prot High Sens 22.850 mg/dL (0.0-0.3) H 03/04/25 22:59 Lipase 37 U/L (13-60) 03/04/25 22:59 All radiology interpretation(s) finalized by discharge Discharge Plan Discharge Patient Disposition: Home Clinical Impression: Acute postoperative pain Condition: Stable Prescriptions: New hydromorphone [Dilaudid] 2 mg tablet 2 mg PO Q6H PRN (Reason: pain) Qty: 6 0RF cyclobenzaprine 10 mg tablet 10 mg PO TID PRN (Reason: muscle spasm) Qty: 20 0RF No Action (DME) blood-glucose,customer experience manager,cont Misc See Rx Instructions .Route Qty: 1 0RF Rx Instructions: As directed (DME) lancets [Color Lancets] 21 gauge misc See Rx Instructions .Route Qty: 100 0RF Rx Instructions: As directed fluoxetine 60 mg tablet 60 mg PO BID Qty: 60 0RF Rx Instructions: administer in the morning and at noon/midday trazodone 100 mg tablet 100 mg PO DAILY Qty: 30 0RF celecoxib 200 mg capsule 200 mg PO BID Qty: 60 0RF insulin glargine 100 unit/mL (3 mL) insulin pen See Rx Instructions SUBCUT BID Qty: 15 0RF Rx Instructions: subcutaneously twice a day; 24 units in am and 30 units in evening (DME) Advanced Gluc Meter Test Strip Strip See Rx Instructions .Route Qty: 200 0RF Rx Instructions: As directed (DME) pen needle, diabetic [Pen Needle] 30 gauge x 5/16 needle See Rx Instructions .Route Qty: 1200 1RF Rx Instructions: As directed divalproex [Depakote] 500 mg tablet,delayed release (DR/EC) 500 mg PO BID diphenhydramine HCl [Benadryl Allergy] 25 mg Tablet 25 mg PO TID PRN (Reason: allergies) hydrocodone-acetaminophen 5-325 mg tablet 1 tab PO Q4H PRN (Reason: pain) 7 Days Qty: 42 0RF Discharge Orders: Discharge ED (Routine); Ordered 03/05/25 Ordered By: Luis Brand Referrals: Micki Max FNP [Primary Care Provider, [facility]] Discharge Diet: Usual diet Discharge Activity: Increase activity as tolerated Patient Instructions: Opioid Safety, Pain Management, Patient Portal & [place] Instructions Activity Restrictions/Additional Instructions: You were seen for your back pain in setting of your recent surgery, you were evaluated with labs and CTs of your back which showed good positioning of your hardware and no apparent complications. Your pain was improved with medication and you are deemed stable to be discharged home. Continue to use ibuprofen 400 mg every 4 hours as needed for the pain, alternating with the [place] which has Tylenol in it in addition every 6 hours. On top of that, take the oral Dilaudid 2 mg not within 2 hours of the [place] if you still need additional relief, do not drive or operate heavy machinery with this medication as it can be sedating. Additionally, use the muscle relaxant, Flexeril 10 mg every 8 hours as needed for any spasms or cramps. Make a follow-up appointment with the original surgeon in the next few days for reevaluation overall. Return to the ED with severe worsening of your pain, inability to feel or move your legs, being unable to urinate, fevers, any other emergent concerns. Print Language: Senegalese Coding Level of Care Code ED Coroner/Medical Examiner for Junior Awan
[2025-03-04 23:34] LABS: Anion Gap 12.5 (5-19); Blood Urea Nitrogen 15 mg/dL (8-23); Calcium 9.0 mg/dL (8.5-10.5); Carbon Dioxide 28 mmol/L (22-29); Chloride 99 mmol/L (98-107); Glucose 281 mg/dL (65-115); Lipase 37 U/L (13-60); Magnesium 1.9 mg/dL (1.7-2.3); Osmolality Calculated 291 mOsm/kg (285-295); Potassium 4.5 mmol/L (3.5-5.1); Sodium 135 mmol/L (136-145)
[2025-03-05 00:03] VITALS: BP 165/79; RESP 17; O2SAT 96
[2025-03-05 00:44] VITALS: BP 156/79; PULSE 85; O2SAT 97
== END 2025-03-05 00:45 | disposition home or self-care (01) ==
PROVIDERS: Emergency Provider Student in an Organized Health Care Education/Training Program; PCP Nurse Practitioner Family
DX: G89.18 Other acute postprocedural pain (principal); Z79.4 Long term (current) use of insulin; E11.9 Type 2 diabetes mellitus without complications; M43.26 Fusion of spine, lumbar region
CPT/HCPCS: 72128; 74176; 80048; 82550; 83690; 83735; 84100; 85025; 86141; 96374; 96375; 99285; J1171; J1885

== ENCOUNTER 2025-03-07 16:56 | Emergency (ER) | payer MEDICAID, SELFPAY ==
--- OUTSIDE RECORDS SUMMARY | 2010-11-12 18:00 | XMS_ITS | Continuity of Care Document ---
Author Organization [facility] Address [address] [place] [address] Phone Care Team Providers Care General Intern Name Role Phone Won Zavala M.D. Unavailable Unavailable Advance Directives Directive Yes / No Effective Date File Name No Information Encounters Encounter Description Practice Location Reason(s) For Visit Diagnoses Date Provider Providers Copied on Encounter [facility], [address] [place], [place], [id number], [place] tel:[phone] [facility] No Information Lucas Upton. [address] [place] [address] Cur[facility], [place], [id number], [place]. Family History Family Member Type Diagnosis Age At Onset No Information Payers Payer name Insurance type Covered alliance party ID Authoriza tion(s) No Information Social History Type Description Quantity Date Captured Comments Sex Male Smoking Status No Information Vital Signs Date / Time: Height Weight BMI Pulse Rate Blood Pressure Temperature Respiratory Rate Body Surface Area Head Circumference Head Circ. Percentile Wt./Sergey. Percentile BMI percentile Pulse Ox Inhaled Ox 71.00 in 101.605 kg (224.00 lbs) 31.2 4 kg/m eter (2) 92 /min 153/90 mm[Hg] 26 /min Chief Complaint And Reason For Visit No Information Reason For Referral Reason For Referral No Information History Of Present Illness Encounter Date Complaint History Of Prese nt Illness No Information Functional Status Date Functional Assessmen t No Information Instructions Date Instruction Additional Infor mation No Information Assessments Type Assessment Date No Information Patient Care Teams Name Effective Dates (start - stop) Status Members No Information
--- OUTSIDE RECORDS SUMMARY | 2025-03-07 17:00 | XMS_ITS | Encounter Summary ---
Author Organization [employer] Address [address] [place] [address] Care Team Providers Care Seater Assembler Name Role Phone Unavailable Primary Care Provider Unavailabl e Encounter Details Date Type Department Care Team (Late st Contact Info) Description 03/06/2025 External Device Data [facility] ABSTRACTION Provider, Abstract [...]
--- OUTSIDE RECORDS SUMMARY | 2025-03-07 17:00 | XMS_ITS | Encounter Summary ---
Author Organization [employer] Address [address] [place] [address] Care Team Providers Care Esol Teacher Name Role Phone Unavailable Primary Care Provider [...]
--- OUTSIDE RECORDS SUMMARY | 2025-03-07 17:00 | XMS_ITS | Clinical Summary ---
Author Organization [facility] Address [address] [place] [address] Phone Care Team Providers Care Brokerage Coordinator Name Role Phone Unavailable Primary Care Provider Unavailabl e Allergies Active Allergy Reactions Criticality Noted Date Comments Penicillin Anaphylaxis High 05/26/2024 Medications No known medications Active Problems Problem Noted Date Diagnosed Date Musculoskeletal back pain 05/26/2024 Encounters Date Type Department Care Team Description 03/06/2025 External Device Data [facility] ABSTRACTION Provider, Abstract 02/27/2025 External Device Data [facility] ABSTRACTION Provider, [...] (1 - 1-dose 75+ series) 02/23/2039 Insurance [facility] [id number] MEDICAID [place]
[2025-03-07 17:12] VITALS: BP 145/84; PULSE 104; TEMP 36.5; O2SAT 96
--- NOTE | 2025-03-07 17:33 | W.ED.EXTPRO ---
HPI - Extremity Problem General: Chief complaint: Extremity Problem,Nontraumatic Stated complaint: Pain going down both Legs Time Seen by Provider: 03/07/25 17:14 History of Present Illness: Patient 60-year-old male that underwent PLIF L4/L5 on 03/02, presents to the emergency room with leg and back pain. Context: Patient complains of pain as thunder when standing. He does not have any groin numbness, anesthesia, or urinary incontinence. He states that his legs feel like pain, numbness, on the medial portion starting mid thigh and extending. Patient was in the ER last night due to uncontrolled issues with his legs/back. He has taken his medication as prescribed. Denies any abdominal pain. He has had a bowel movement. No nausea, vomiting. 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 Instructions: Resume on 03/04/25. insulin glargine 100 unit/mL (3 See Rx Instructions SUBCUT BID #15 02/09/25 mL) subcutaneous pen mL blood sugar diagnostic (Advanced #200 ea 02/14/25 Glucose Meter Test Strips) pen needle, diabetic 30 gauge x #1,200 ea 02/15/2507/28 (Pen Needle) hydrocodone 5 mg-acetaminophen 325 1 tab PO Q4H PRN pain 7 days #42 03/02/25 mg tablet tabs cyclobenzaprine 10 mg tablet 10 mg PO TID PRN muscle spasm #20 03/05/25 tabs hydromorphone 2 mg tablet 2 mg PO Q6H PRN pain #6 tabs 03/05/25 (Dilaudid) gabapentin 300 mg capsule 300 mg PO TID 30 days #90 caps 03/07/25 methocarbamol 750 mg tablet 750 mg PO Q8H PRN muscle spasm #30 03/07/25 tabs methylprednisolone 4 mg tablets in See Rx Instructions PO .COMPLEX 03/07/25 a dose pack (Medrol (Victoriano)) #21 ea Allergies Allergy/AdvReac Type Severity Reaction Status Date / Time Penicillins Allergy unknown Verified 03/07/25 17:19 Review of Systems General: Reports: 10 or more systems reviewed and unremarkable except in HPI and below Const: Denies: fever(s) or chills Eyes: Denies: change in vision or blurry vision ENMT: Denies: throat pain or mouth pain Card: Denies: chest pain or palpitations Resp: Denies: dyspnea or non-productive cough GI: Denies: abdominal pain, nausea or vomiting : Denies: flank pain or difficulty urinating Musc: Reports: extremity pain; Denies: neck pain, back pain, extremity swelling, joint pain, joint swelling or joint redness Neuro: Reports: weakness in extremities, lack of coordination and difficulty walking; Denies: headache(s), numbness in extremities, sensory changes, frequent falls, dizziness, vertigo, confusion, behavioral changes, difficulty communicating thoughts or involuntary movements Psych: Denies: anxiety or depression PFSH ED PFSH: Medical History (Updated 03/07/25 @ 17:39 by BRITTNEY Melton) Lipoma of axilla Uncontrolled diabetes mellitus Diabetes Social History Smoking and tobacco/nicotine status: never used tobacco/nicotine Alcohol intake: never Substance/Drug Use: never Adopted: No Caregiver/support person: No Lives independently: No Household members: spouse Current occupational status: employed Sexually active: Yes Do you think of yourself as: Straight/Heterosexual Current gender identity: Male Physical Exam Const: COMMON NORMALS: no acute distress, average body habitus, patient oriented x3 and no limitations GENERAL APPEARANCE: cooperative HENMT: COMMON NORMALS: normocephalic and atraumatic HEAD & SCALP: normocephalic and atraumatic Chest: COMMONS NORMALS: normal inspection of the chest and normal palpation of entire chest wall Resp: COMMON NORMALS: normal respiratory effort, No retractions and No use of accessory muscles EFFORT & INSPECTION: Yes able to speak in complete sentences Cardio: COMMON NORMALS: regular rate and regular rhythm RATE: regular rate RHYTHM: regular rhythm GI: COMMON NORMALS: Normal to inspection, nondistended, normoactive bowel sounds present, Soft to palpation, non-tender and No hepatosplenomegaly present PALPATION: Yes Soft to palpation and Yes No hepatosplenomegaly present : COMMON NORMALS: Yes no CVA tenderness BLADDER/KIDNEY EXAM: Yes no CVA tenderness Back/Pelvis: COMMON NORMALS: no CVA tenderness THORACIC SPINE/UPPER BACK: Yes thoracic ROM normal and Yes ROM limited (due to pain) OTHER: Well-appearing male with lower midline incision. Lumbar without any step-offs. No saddle anesthesia. Extremity: COMMON NORMALS: normal to inspection, full ROM and capillary refill normal Neuro: COMMON NORMALS: patient oriented x3 and CN's II-XII intact bilaterally Psych: COMMON NORMALS: mental status grossly normal, Normal thought process present, cooperative and speech normal APPEARANCE: Yes grossly normal ATTITUDE: Yes calm and Yes agitated ACTIVITY/MOTOR BEHAVIOR: Yes appropriate eye contact SPEECH: Yes normal speech THOUGHT PROCESS: Normal thought process present Course Vital Signs: Vital signs: Vital Signs Temperature 97.7 F 03/07/25 17:12 Pulse Rate 95 03/07/25 18:18 Blood Pressure 145/87 03/07/25 18:18 Pulse Oximetry 95 03/07/25 18:18 Oxygen Delivery Me thod Room Air 03/07/25 18:05 MDM - Extremity (Nontraumatic) Medical Decision Making Patient is a 60-year-old gentleman underwent PLIF L4/L5 on 1218 that presents to the ED with ongoing lower extremity pain, back pain. There is no red flags with his surgical incision. No step-offs. No saddle anesthesia. No incontinence of urine or bowel. This is most likely local inflammatory changes. Will give dexamethasone, Toradol, Norflex, and gabapentin. Patient will be sent home with gabapentin to cover for tomorrow, [employer], and will have a gabapentin and Medrol Dosepak at the pharmacy. He is to call his primary surgeon on Wednesday for follow-up and any concerns. I went over all the discharge with the patient. Medical Records I reviewed the patient's medical records. 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 Misc See Rx Instructions .Route Qty: 1 0RF Rx Instructions: As directed (DME) lancets [Color Lancets] 21 gauge misc See Rx Instructions .Route Qty: 100 0RF Rx Instructions: As directed fluoxetine 60 mg tablet 60 mg PO BID Qty: 60 0RF Rx Instructions: administer in the morning and at noon/midday trazodone 100 mg tablet 100 mg PO DAILY Qty: 30 0RF celecoxib 200 mg capsule 200 mg PO BID Qty: 60 0RF insulin glargine 100 unit/mL (3 mL) insulin pen See Rx Instructions SUBCUT BID Qty: 15 0RF Rx Instructions: subcutaneously twice a day; 24 units in am and 30 units in evening (DME) Advanced Gluc Meter Test Strip Strip See Rx Instructions .Route Qty: 200 0RF Rx Instructions: As directed (DME) pen needle, diabetic [Pen Needle] 30 gauge x 5/16 needle See Rx Instructions .Route Qty: 1200 1RF Rx Instructions: As directed divalproex [Depakote] 500 mg tablet,delayed release (DR/EC) 500 mg PO BID diphenhydramine HCl [Benadryl Allergy] 25 mg Tablet 25 mg PO TID PRN (Reason: allergies) hydrocodone-acetaminophen 5-325 mg tablet 1 tab PO Q4H PRN (Reason: pain) 7 Days Qty: 42 0RF hydromorphone [Dilaudid] 2 mg tablet 2 mg PO Q6H PRN (Reason: pain) Qty: 6 0RF cyclobenzaprine 10 mg tablet 10 mg PO TID PRN (Reason: muscle spasm) Qty: 20 0RF Discharge Orders: Discharge ED (Routine); Ordered 03/07/25 Ordered By: Mya Kinsey Referrals: Micki Max FNP [Primary Care Provider, Family Practice] Patient Instructions: Acute Low Back Pain (ED), Patient Portal & [place] Instructions Activity Restrictions/Additional Instructions: - You may ice this area of your lower back - You may supplement with Tylenol At the pharmacy: Gabapentin.-Initially today, you had 1 pill. Tomorrow you should have 2, that you can take in the afternoon and evening or before bed. 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 Methocarbamol: Muscle relaxer. Use as directed. Medrol Dosepak: Use as directed. Start on Wednesday. You did have a steroid here. Thank you for choosing [facility] for your healthcare needs today. You have been screened and evaluated and felt safe for discharge. Health conditions do change or evolve sometimes and as such it is important that you follow up with your Primary Doctor to be re checked, 3-5 days is a general good time frame for follow up. You are always welcome to return to the ED for re assessment if your symptoms are worsening or you have new concerns Print Language: Burkinan Coding Level of Care Code ED Research Worker Kitchen for Junior Awan
[2025-03-07] MEDS: orphenadrine 30 mg/mL Inj 2 mL 60 MG IM (17:58)
[2025-03-07 18:05] VITALS: BP 145/87; PULSE 95; O2SAT 95
[2025-03-07 18:18] VITALS: BP 145/87; PULSE 95; O2SAT 95
== END 2025-03-07 18:25 | disposition home or self-care (01) ==
PROVIDERS: Emergency Provider Physician Assistant; PCP Nurse Practitioner Family
DX: G89.18 Other acute postprocedural pain (principal); Z79.4 Long term (current) use of insulin; E11.9 Type 2 diabetes mellitus without complications; Z98.890 Other specified postprocedural states
CPT/HCPCS: 96372; 99284; J1100; J1885; J2360; J9999